=== PATIENT | male | born 1965 | race Caucasian/White ===

== ENCOUNTER 2016-12-30 06:50 | Emergency (ER) | payer SELFPAY ==
[~2016-12-30] VITALS: Wt 113.4 kg
[2016-12-30] MEDS ORDERED: ONDANSETRON 4 MG INJ IV STA (07:12)
[2016-12-30] MEDS ORDERED: SOD CHLORIDE 0.9% 1,000 ML IV STA (07:12)
[2016-12-30] MEDS ORDERED: morphine 4 MG/ML VIAL IV STA (07:12)
[2016-12-30 07:36] LABS: BASOPHILS % 0.3 % (0.0-2.0); EOSINOPHILS % 0.2 % (0.0-7.0); HEMATOCRIT 41.7 % (42.0-52.0); HEMOGLOBIN 14.5 g/dl (14.0-18.0); LYMPHOCYTES # 1.2 10^3/ul (0.8-2.9); LYMPHOCYTES % 12.3 % (15.0-51.0); MEAN CORPUSCULAR HEMOGLOBIN 31.3 pg (29.0-33.0); MEAN CORPUSCULAR HGB CONC 34.8 g/dl (32.0-37.0); MEAN CORPUSCULAR VOLUME 90.1 fl (82.0-101.0); MEAN PLATELET VOLUME 10.1 fl (7.4-10.4); MONOCYTE # 0.5 10^3/ul (0.3-0.9); MONOCYTES % 5.5 % (0.0-11.0); NEUTROPHILS % 81.3 % (39.0-77.0); PLATELET COUNT 183 10^3/UL (140-415); RED BLOOD COUNT 4.63 10^6/ul (4.70-6.10); RED CELL DISTRIBUTION WIDTH 13.2 % (11.5-14.5); WHITE BLOOD COUNT 9.9 10^3/ul (4.8-10.8)
[2016-12-30 07:42] LABS: ADD UMIC YES; UR ASCORBIC ACID NEGATIVE (NEGATIVE); UR BACTERIA FEW /HPF (NONE SEEN); UR BILIRUBIN (Dip) NEGATIVE (NEGATIVE); UR BLOOD (Dip) NEGATIVE (NEGATIVE); UR CLARITY SLIGHTLY CLOUDY (CLEAR); UR COLOR AMBER (YELLOW); UR GLUCOSE (Dip) 1+ mg/dL (NEGATIVE); UR KETONES (Dip) 1+ mg/dL (NEGATIVE); UR LEUKOCYTE ESTERASE (Dip) NEGATIVE Leu/ul (NEGATIVE); UR MUCUS MANY /HPF (NONE SEEN); UR NITRITE (Dip) NEGATIVE (NEGATIVE); UR RBC 2 /HPF (0-5); UR SPECIFIC GRAVITY (Dip) 1.027 (1.003-1.030); UR TOTAL PROTEIN (Dip) 2+ mg/dl (NEGATIVE); UR UROBILINOGEN (Dip) 1+ mg/dL (NEGATIVE)
[2016-12-30 07:56] LABS: ALANINE AMINOTRANSFERASE 62 IU/L (13-69); ALBUMIN 4.2 g/dl (3.3-4.9); ALBUMIN/GLOBULIN RATIO 1.35; ALKALINE PHOSPHATASE 151 IU/L (42-121); ANION GAP 18 (8-16); ASPARTATE AMINO TRANSFERASE 67 IU/L (15-46); BILIRUBIN,INDIRECT 0.9 mg/dl (0-1.1); BILIRUBIN,TOTAL 0.9 mg/dl (0.2-1.3); BLOOD UREA NITROGEN 15 mg/dl (7-20); CALCIUM 8.5 mg/dl (8.4-10.2); CARBON DIOXIDE 28 mmol/L (21-31); CHLORIDE 99 mmol/L (97-110); CREATININE 1.15 mg/dl (0.61-1.24); GLUCOSE 189 mg/dl (70-220); POTASSIUM 3.4 mmol/L (3.5-5.1); SODIUM 142 mmol/L (135-144); TOTAL PROTEIN 7.3 g/dl (6.1-8.1)
[2016-12-30] MEDS ORDERED: POTASSIUM CHLORIDE (SR) 20 MEQ TAB PO STA (08:12)
--- NOTE | 2016-12-30 08:19 | RADRPT ---
PROCEDURE: US Abdomen (right upper quadrant). CLINICAL INDICATION: Right upper quadrant abdomen pain. TECHNIQUE: Multiple real-time longitudinal and transverse images of the right upper quadrant of th e abdomen were acquired utilizing a curved array transducer. Images were reviewed on a high-resoluti on PACS workstation. COMPARISON: None FINDINGS: The liver is normal in size and normal in echogenicity. There is no focal hepatic lesion. The gallbladder is distended but otherwise normal with no stones or wall thickening. There is no pe richolecystic fluid collection. The bile ducts are normal with the common bile duct measuring 5.1 mm in diameter. The visualized portions of the pancreas are unremarkable with obscuration of the tail of the pancrea s. No free fluid is present. The right kidney measures 9.6 cm. There is normal echogenicity of the right kidney. There is no p erinephric fluid collection. No hydronephrosis, mass, or calculus is seen. IMPRESSION: 1. Distended gallbladder. 2. Otherwise unremarkable right upper quadrant abdomen ultrasound. RPTAT: QQ .Tim Palomo MD, Date Time Electronically viewed and signed by .Tim Palomo MD, on 12/30/2016 08:19 .R/
[2016-12-30 08:24] LABS: ETHANOL < 10.0 mg/dl
[2016-12-30] MEDS ORDERED: ONDA4TAB14 PO (08:50)
--- NOTE | 2016-12-30 08:53 | ERD ---
ER Documentation Chief Complaint Chief Complaint abd pain, n/v, binge drinking x2 wks HPI Patient is a 51-year-old male with hypertension who presents with abdominal pain. He admits to drinking alcohol and has been drinking alcohol heavily for the past 2 weeks. He has right upper quadrant abdominal pain. The pain is been constant and sharp in nature. He has been vomiting but has had no blood in his vomit. His primary doctor is Dr. Redmond. ROS All systems reviewed and are negative except as per history of present illness. Medications Home Meds Active Scripts Ondansetron (Ondansetron Odt) 4 Mg Tab.rapdis, 4 MG PO Q6H Y for NAUSEA AND/OR VOMITING, #10 TAB Prov:RYAN GILBERT MD 12/30/16 Allergies Allergies: Coded Allergies: No Known Allergy (Unverified , 12/30/16) PMhx/Soc Positive for hypertension FmHx Family History: diabetes Physical Exam Vitals Vital Signs Date Time Temp Pulse Resp B/P Pulse Ox O2 Delivery O2 Flow Rate FiO2 12/30/16 06:53 97.4 131 20 142/86 96 Physical Exam Const: Moderate distress Head: Atraumatic Eyes: Normal Conjunctiva ENT: Normal External Ears, Nose and Mouth. Neck: Full range of motion..~ No meningismus. Resp: Clear to auscultation bilaterally Cardio: Tachycardic rate without murmur Abd: Right upper quadrant tenderness to palpation without rebound or guarding Skin: No petechiae or rashes Back: No midline or flank tenderness Ext: No cyanosis, or edema Neur: Awake and alert Psych: Normal Mood and Affect Result Diagram: 12/30/16 0720 12/30/16 0720 Results 24 hrs Laboratory Tests Test 12/30/16 07:20 White Blood Count 9.910^3/ul Red Blood Count 4.6310^6/ul Hemoglobin 14.5g/dl Hematocrit 41.7% Mean Corpuscular Volume 90.1fl Mean Corpuscular Hemoglobin 31.3pg Mean Corpuscular Hemoglobin Concent 34.8g/dl Red Cell Distribution Width 13.2% Platelet Count 00337^3/UL Mean Platelet Volume 10.1fl Neutrophils % 81.3% Lymphocytes % 12.3% Monocytes % 5.5% Eosinophils % 0.2% Basophils % 0.3% Nucleated Red Blood Cells % 0.0/100WBC Neutrophils # 8.010^3/ul Lymphocytes # 1.210^3/ul Monocytes # 0.510^3/ul Eosinophils # 0.010^3/ul Basophils # 0.010^3/ul Nucleated Red Blood Cells # 0.010^3/ul Urine Color YOHANA Urine Clarity SLIGHTLY CLOUDY Urine pH 5.0 Urine Specific [place] 1.027 Urine Ketones 1+mg/dL Urine Nitrite NEGATIVEmg/dL Urine Bilirubin NEGATIVEmg/dL Urine Urobilinogen 1+mg/dL Urine Leukocyte Esterase NEGATIVELeu/ul Urine Microscopic RBC 2/HPF Urine Microscopic WBC 4/HPF Urine Bacteria FEW/HPF Urine Mucus MANY/HPF Urine Hemoglobin NEGATIVEmg/dL Urine Glucose 1+mg/dL Urine Total Protein 2+mg/dl Sodium Level 142mmol/L Potassium Level 3.4mmol/L Chloride Level 99mmol/L Carbon Dioxide Level 28mmol/L Anion Gap 18 Blood Urea Nitrogen 15mg/dl Creatinine 1.15mg/dl Glucose Level 189mg/dl Calcium Level 8.5mg/dl Total Bilirubin 0.9mg/dl Direct Bilirubin 0.00mg/dl Indirect Bilirubin 0.9mg/dl Aspartate Amino Transf (AST/SGOT) 67IU/L Alanine Aminotransferase (ALT/SGPT) 62IU/L Alkaline Phosphatase 151IU/L Total Protein 7.3g/dl Albumin 4.2g/dl Globulin 3.10g/dl Albumin/Globulin Ratio 1.35 Lipase 77U/L Ethyl Alcohol Level < 10.0mg/dl Current Medications Medications (Trade) Dose Ordered Sig/Marilyn Route PRN Reason Start Time Stop Time Status Last Admin Dose Admin Sodium Chloride (NS) 1,000 ml @ 1,000 mls/hr Q1H STAT IV 12/30/16 07:12 12/30/16 08:11 DC 12/30/16 07:33 Morphine Sulfate (morphine) 4 mg ONCE STAT IV 12/30/16 07:12 12/30/16 07:13 DC 12/30/16 07:33 Ondansetron HCl (Zofran Inj) 4 mg ONCE STAT IV 12/30/16 07:12 12/30/16 07:13 DC 12/30/16 07:33 Potassium Chloride (Klor-Con 20) 40 meq ONCE STAT PO 12/30/16 08:12 12/30/16 08:13 DC Procedures/MDM Ultrasound shows distended gallbladder per radiology. Patient is a 51-year-old male with hypertension and alcohol abuse who presents with abdominal pain. The patient has right upper quadrant abdominal pain for the past 2 weeks. His ultrasound shows a distended gallbladder but no signs of cholecystitis. Laboratory studies are basically normal. The patient will be discharged with prescription for Zofran. The patient was given morphine and Zofran in the emergency department. He is not vomiting blood. He will be discharged but we to follow-up closely with his primary doctor within 24 hours for evaluation. He can return sooner for any worsening symptoms. He was told to stop drinking alcohol to excess. He was given copies of his laboratory studies and ultrasound report prior to discharge. Departure Diagnosis: Primary Impression: Abdominal pain Abdominal location: right upper quadrant Qualified Code: R10.11 - Right upper quadrant abdominal pain Additional Impression: Alcoholic intoxication Complication of substance-induced condition: uncomplicated Qualified Code: F10.920 - Alcoholic intoxication without complication Condition: Fair Patient Instructions: Abdominal Pain, Alcohol Abuse [facility] Usted se medina hecho un examen mdico de control que le indica que no est en yisel condicin que requiera tratamiento urgente en el Departamento de Emergencia. Un estudio ms profundo y el tratamiento de cassidy condicin pueden esperar sin ningn riesgo hasta que usted sea atendida/o en el consultorio de cassidy mdico o yisel cl erick. Es responsabilidad suya arreglar yisel jeanette para el seguimiento del renee. MANEJO DE CONDICIONES NO URGENTES EN EL FUTURO 1) Si usted tiene un mdico de atencin primaria: Usted debera llamar a cassidy mdico de atencin primaria antes de venir al departamento de emergencia. Despus de las horas de consultorio, cassidy doctor o cassidy asociado/a est disponible por telfono. El mdico o enfermero de hawa en el servicio telefnico puede asesorarle por azra medio para atender el problema, o renee contrario se puede programar yisel jeanette. 2) Si usted no tiene un mdico de atencin primaria: Llame al mdico o clnica de referencia que aparece abajo mark anthony las horas de consultorio para hacer yisel jeanette para que le vean. CLINICAS: [facility] [phone] [facility] [phone] [facility] [phone] [place] [phone] [place] [address] [phone] [facility] [phone] [address] Additional Instructions: Visite a cassidy mdico maana para un EXAMEN.Regrese a estas instalaciones si no se mejora arley esperbamos o arley le dijimos. RYAN GILBERT MD Dec 30, 2016 08:53
[2016-12-30 11:59] VITALS: BP 145/72; PULSE 88; RESP 18; TEMP 98.6
== END 2016-12-30 13:37 | disposition home or self-care (01) ==
LOC: E/R 06:50
DX: R10.11 Right upper quadrant pain (principal); F10.920 Alcohol use, unspecified with intoxication, uncomplicated; I10 Essential (primary) hypertension
CPT/HCPCS: 36415; 76705; 80053; 80306; 81001; 83690; 85025; 96374; 96375; 99285; J2270; J2405; J7030